=== PATIENT | female | born 1925 | race Caucasian/White ===

== ENCOUNTER 2016-10-15 12:05 | Emergency (ER) | payer MEDICARE, BC ==
--- NOTE | ~2016-10-15 | ER ---
PATIENT'S NAME: KATJA THOMAS [facility] AGE: 89 Y [address] ROOM: [place] [address] LOCATION: [facility] ADMIT DATE: 10/15/2016 ER/Outpatient Report DISCHARGE DATE: 10/15/2016 FAMILY PHYSICIAN: Robin Wolf MD ATTENDING PHYSICIAN: Karen Olivo TIME OF ARRIVAL: 1205 hours. TIME SEEN: 1206 hours. IDENTIFICATION: An 89-year-old female. CHIEF COMPLAINT: Vomiting. HISTORY OF PRESENT ILLNESS: The patient is an 89-year-old female from [place], [place] brought in by her . She has had nausea, vomiting all night long 12+ times. She denied diarrhea, but her said she had "been on the toilet" several times. She then admitted that maybe she did have some loose stools. She has had an occasional cough, she feels short of breath, she uses p.r.n. O2, and has a history of COPD. She has had no fever or chills. No ill contacts. ALLERGIES: NO KNOWN DRUG ALLERGIES. CURRENT MEDICATIONS: 1. Aricept 10 mg daily. 2. Levothyroxine 75 mcg daily. 3. Metoprolol 25 mg daily. MEDICAL PROBLEMS: COPD, hypertension, bronchiectasis, hypothyroidism, Alzheimer's dementia, dyslipidemia, Mycobacterium avium complex, takotsubo cardiomyopathy, and Lopez neuroma. PRIOR SURGERIES: L4-5 decompression, laminectomy, spinal fusion, appendectomy, cholecystectomy, breast biopsies, and total right knee arthroplasty. SOCIAL HISTORY: The patient is . She has been almost 72 years, will be 71 PATIENT'S NAME: KATJA THOMAS [facility] AGE: 89 Y [address] ROOM: [place] [address] LOCATION: [facility] ADMIT DATE: 10/15/2016 ER/Outpatient Report DISCHARGE DATE: 10/15/2016 FAMILY PHYSICIAN: Robin Wolf MD ATTENDING PHYSICIAN: Karen Olivo years, 72 in January. Tobacco use, quit in 1969. Alcohol use, denies. Drug use, denies. The patient is . She is retired. She has had multiple jobs throughout her life. REVIEW OF SYSTEMS: All systems reviewed and negative other than what is noted in the HPI. FAMILY HISTORY: No pertinent family history. PHYSICAL EXAMINATION: VITAL SIGNS: Height 5 feet, 2 inches and weight 53.6 kg. Blood pressure 152/72, pulse 104, respirations 19, temp 98, and sats 93%. GENERAL: A pleasant 89-year-old female in no acute distress. HEENT: Unremarkable. LUNGS: Clear to auscultation. HEART: Regular rate and rhythm. ABDOMEN: Soft, nondistended, nontender. SKIN: [place], warm, and dry. No lesions or rashes noted. NEURO: No focal deficit. EMERGENCY DEPARTMENT COURSE: The patient was given 300 mL fluid bolus then 150 mL/hr, but she was here from 12:05 p.m. until 16:27 p.m. and she received 900 mL of fluid. She received Zofran, she felt much better. LABORATORY DATA: EKG sinus tachycardia, nonspecific ST-T wave changes. White count slightly elevated at 12.3, 84% neutrophils, hemoglobin 16.4, hematocrit 51, and platelets 213. INR 1.0. CPK MB 0.7, troponin less than 0.040. Sodium 142, potassium 4.3, chloride 106, CO2 26, BUN 22, creatinine 1.3, blood sugar 125. Liver enzymes normal. Magnesium 2.6, amylase 49, lipase 99, CPK 70. UA specific gravity 1.025, 10-20 white cells, 2-5 red cells, 20-50 epithelial cells. Chest x-ray, no acute process, pending Radiology over-read. IMPRESSION: Gastroenteritis. PLAN: Clear liquids in small amounts at frequent intervals, advance diet as tolerated, follow up if fever, pain, or persistent nausea. Follow up with Dr. Wolf in 1-3 days. Follow up sooner if any problems or concerns. The patient and her understand and agree and all questions were answered. PATIENT'S NAME: KATJA THOMAS [facility] AGE: 89 Y [address] ROOM: [place], [place] [address] LOCATION: ED ADMIT DATE: 10/15/2016 ER/Outpatient Report DISCHARGE DATE: 10/15/2016 FAMILY PHYSICIAN: Robin Wolf MD ATTENDING PHYSICIAN: Karen Olivo MD Kali LORENZ /[id number] d: 10/17/16 0041 t: 10/17/16 1443, OUTPATIENT REPORT
[~2016-10-15 12:05] MED LIST: ARICEPT10 MG PO; ASPIR 8181 MG PO; ATROVENT HFA12.9 G1 INH; AZITHROMYCIN250 MG; DELTASONE10 MG PO; DELTASONE20 MG PO; INCRUSE ELLI62.5 MCG INH; LEVAQUIN500 MG PO; LEVOTHROID (SY50 MCG PO; LEVOTHROID(SYN75 MCG PO; MOBIC7.5 MG PO; SPIRIVA18 MCG INH; TOPROL XL25 MG PO; TYLENOL325 MG PO; ZITHROMAX500 MG PO
[2016-10-15 13:49] LABS: BASOPHIL % 0.3 %; EOSINOPHIL % 0.1 %; HEMOGLOBIN 16.4 g/dL (10.0-15.0); IMMATURE GRANULOCYTE # 0.1 K/uL (0.0-0.3); IMMATURE GRANULOCYTE % 0.4 %; LYMPHOCYTE # 0.8 K/uL (0.8-4.0); LYMPHOCYTE % 6.7 %; MCH 28.9 pg (27.0-34.0); MCHC 32.2 gm/dL (32.0-36.5); MCV 89.9 fl (83.0-98.0); MONOCYTE % 7.7 %; MPV 10.7 fl (9.4-12.4); NEUTROPHIL # (ANC) 10.4 K/uL (1.8-7.8); NEUTROPHIL % 84.8 %; NRBC % 0 /100WBC (0-0.00); WBC 12.3 K/uL (4.0-11.0)
[2016-10-15 13:51] LABS: PROTIME 10.4 SECONDS (9.6-11.1); PTT 22 SECONDS (25-32)
[2016-10-15 14:28] LABS: PLATELET COUNT 213 K/uL (150-450); RBC 5.67 M/uL (3.00-5.00)
[2016-10-15 15:10] LABS: ALBUMIN 3.7 gm/dL (3.5-5.0); ALK PHOS 84 IU/L (33-138); ALT 25 IU/L (12-78); ANION GAP 14.3 (10.0-19.0); AST 32 IU/L (10-40); BLOOD UREA NITROGEN 22 mg/dL (6-24); CALCIUM 8.9 mg/dL (8.5-10.5); CHLORIDE 106 mMol/L (96-110); CO2 26 mMol/L (22-32); CPK 70 IU/L (21-215); CREATININE 1.3 mg/dL (0.5-1.1); ESTIMATED GFR (MDRD EQUATION) 39; MAGNESIUM 2.6 mg/dL (1.3-2.6); POTASSIUM 4.3 mMol/L (3.7-5.1); SODIUM 142 mMol/L (135-145); TOTAL BILIRUBIN 0.4 mg/dL (0.0-1.5); TOTAL PROTEIN 7.6 g/dL (6.0-8.4)
[2016-10-15 15:57] LABS: BLOOD URINE 150 /UL (NEGATIVE); GLUCOSE URINE NEGATIVE (NEGATIVE); KETONE URINE 50 mg/dL (NEGATIVE); LEUKOCYTES URINE 100 /UL (NEGATIVE); NITRITE URINE NEGATIVE (NEGATIVE); PROTEIN URINE 30 mg/dL (NEGATIVE); SPEC GRAVITY URINE 1.025 (1.003-1.035); TURBIDITY URINE 2+ (CLEAR); UROBILINOGEN URINE 1 mg/dL (NORMAL)
[2016-10-15 16:16] LABS: COLOR URINE AMBER (YELLOW)
[2016-10-15 16:19] LABS: AMORPHOUS URINE 1+ (NEGATIVE); BACTERIA URINE RARE (NEGATIVE); EPITHELIAL URINE 20-50 #/HPF (NEGATIVE); HYALINE CAST URINE 20-50 #/LPF (NEGATIVE)
== END 2016-10-15 16:27 | disposition disaster alternative care site (69) ==
LOC: GMED 12:05
PROVIDERS: Family Medicine
DX: K52.9 Noninfective gastroenteritis and colitis, unspecified (principal); J44.9 Chronic obstructive pulmonary disease, unspecified; I10 Essential (primary) hypertension; E03.9 Hypothyroidism, unspecified; E78.5 Hyperlipidemia, unspecified; Z90.49 Acquired absence of other specified parts of digestive tract; Z98.890 Other specified postprocedural states
CPT/HCPCS: J2405; J7030

== ENCOUNTER 2016-10-16 07:57 | Observation (INO) | payer MEDICARE, BC ==
[~2016-10-16] VITALS: Ht 157.5 cm; Wt 56.7 kg
--- NOTE | ~2016-10-16 | HP ---
PATIENT'S NAME: KATJA THOMAS [facility] AGE: 89 Y [address] ROOM: [address] [address] LOCATION: [facility] [place] ADMIT DATE: 10/16/2016 History & Physical DISCHARGE DATE: FAMILY PHYSICIAN: Robin Wolf MD ATTENDING PHYSICIAN: CARLY PETTY DATE OF SERVICE: CHIEF COMPLAINT: IGNACIO and intractable nausea, vomiting, and diarrhea. HISTORY OF PRESENT ILLNESS: This is an 89-year-old female with history of COPD, lives at home with independently, presents with a 3-day history of intractable nausea, vomiting, and watery diarrhea. The patient states that she has not been able to keep anything down at least for the past 24 hours due to this as well. Denies any particular sick contacts, any new medications, antibiotic use, or recent hospitalization in the last 3 months. The patient right now tells me that her primary concern at this point is a lack of appetite and she has not been able to eat and drink. As far as the frequency of the diarrhea and vomiting, that has significantly reduced in volume and frequency since its onset 3 days ago. The patient was evaluated in the emergency room yesterday and was treated supportively and was discharged, but she returns today because she continued not to tolerate p.o. intake well. The patient states that she has had a bowel movement today which was more formed. Has not had vomiting since yesterday. The patient denies any abdominal pain, fever, chills, or any recent travel. PAST MEDICAL HISTORY: Hypertension, COPD, and dyslipidemia. SOCIAL HISTORY: Lives at home with . No history of drug use. Has not smoked over 30 years, but has had a long history of smoking prior to that. FAMILY HISTORY: Sister has osteoporosis, hypothyroidism. No history of heart disease or COPD in the family to report. PHYSICAL EXAMINATION: VITAL SIGNS: Blood pressure was 132/67, pulse 62, respiratory rate 28, temperature 97.4, and saturating 93% on room air. GENERAL: The patient is awake, alert, and oriented x3, in no apparent distress. HEENT: Has dry mucosal membranes. Conjunctival pallor noted. No scleral icterus. PATIENT'S NAME: KATJA THOMAS [facility] AGE: 89 Y [address] ROOM: [id number] [place] [id number] LOCATION: [facility] [place] ADMIT DATE: 10/16/2016 History & Physical DISCHARGE DATE: FAMILY PHYSICIAN: Robin Wolf MD ATTENDING PHYSICIAN: CARLY PETTY SKIN: Without rash or lesions. LUNGS: Coarse breath sounds, but clear to auscultation bilaterally. HEART: S1, S2, regular rate and rhythm. ABDOMEN: Soft, nontender, nondistended. Has positive bowel sounds. MUSCULOSKELETAL: No joint pain, effusion, redness noted. No muscular pain. NEURO: Grossly nonfocal. EXTREMITIES: Without edema. SIGNIFICANT LAB VALUES: creatinine of 1.3, BUN 27. Baseline creatinine is around 0.8. ASSESSMENT AND PLAN: 1. Acute kidney injury secondary to dehydration from nausea, vomiting, and diarrhea. Creatinine 1.3 today. We will continue with supportive care. Give IV normal saline and recheck renal function in the morning and anticipate this to improve with hydration. 2. Gastroenteritis, likely viral cause. Supportive care and start diet and slowly advance to a general diet and continue to monitor. 3. Intractable nausea, vomiting, and diarrhea secondary to likely viral gastroenteritis. 4. Chronic respiratory failure. The patient is on 2 L of oxygen as needed ambulatory. 5. Deep venous thrombosis prophylaxis. We will use subcutaneous heparin. MD SHORTY NARANJO/modl /[id number] D: [id number] T: [id number] HISTORY & PHYSICAL
--- NOTE | ~2016-10-16 | DS ---
PATIENT'S NAME: KATJA THOMAS [facility] AGE: 89 Y [address] ROOM: [place] [address] [place] [facility] [place]: 10/16/2016 Discharge Summary DISCHARGE DATE: 10/19/2016 FAMILY PHYSICIAN: Robin Wolf MD ATTENDING PHYSICIAN: Steph Gonzales PRINCIPAL DISCHARGE DIAGNOSIS: Gastroenteritis, likely viral. SECONDARY DIAGNOSES: 1. Chronic hypoxic respiratory failure and on oxygen at home. 2. Chronic obstructive pulmonary disease. 3. Acute kidney injury, resolved. 4. Essential hypertension, well controlled. 5. Indigestion. 6. Nausea and vomiting. 7. Hemorrhoids (single stool for occult blood positive). 8. Mild memory impairment. 9. Hypothyroidism. CONSULTATIONS: None. COMPLICATIONS: None. PROCEDURES: None. BRIEF HISTORY: Ms Thomas is a very sweet with admittedly poor short-term memory according to her and her . An 89-year-old female with COPD. She does live at home with her , whom she tells me is an EMT and he cares for her. She had come to the emergency room on Friday the with nausea, vomiting, diarrhea, improved after fluids and went home, but returned on the morning of the because of persistent diarrhea and vomiting She was noted to have creatinine up to 1.3. She was given IV fluids, monitored her renal function. IV hydration continued through yesterday. She continued to have multiple stools at that time and was not ready for discharge. She did have some indigestion but it resolved prior to treatment. She was able to ambulate in the halls yesterday. LABORATORY DATA: As of yesterday showed urine culture negative with only contaminant; renal panel showed sodium 142, potassium 3.6 (just under the lower limit of normal), chloride 112, CO2 21, glucose 74, calcium 7.4, BUN 15, creatinine down to 0.8, albumin 2.4, phosphorus 2.1. EGFR greater than 60. Magnesium 2.2. CBC showed white blood cell count 8, hemoglobin 12.3, PATIENT'S NAME: KATJA THOMAS [facility] AGE: 89 Y [address] ROOM: [place] [address] [place] [facility] [place]: 10/16/2016 Discharge Summary DISCHARGE DATE: 10/19/2016 FAMILY PHYSICIAN: Robin Wolf MD ATTENDING PHYSICIAN: Steph Gonzales platelets 201, absolute neutrophil count normal at 5.2 with a normal differential. Stool studies showed negative C diff and Giardia and Shiga toxin with normal fecal sherri. The patient's oxygen saturation this morning on room air was 94%. She has been on room air since yesterday and doing well with oxygen saturations all equal to or above 92. The patient was encouraged to be more active. She declined home physical therapy. After declined physical therapy, the and the patient are currently in agreement with the discharge plan. INSTRUCTIONS AT DISCHARGE: She could continue with BRAT diet, if needed. Bananas, rice, applesauce, saltines and tea; however, her stooling output is much improved. ACTIVITY: As tolerated. FOLLOWUP: Follow up with Dr. Wolf in less than 1 week. MEDICATIONS: 1. Donepezil 10 mg p.o. daily. 2. Anusol suppositories one [place] as needed at bedtime. 3. Levothyroxine 75 mcg p.o. daily. 4. Metoprolol 25 mg p.o. daily. 5. Dulera two puffs inhaled twice daily for COPD as needed. 6. Loperamide 4 mg p.o. four times a day p.r.n. loose stools. CONDITION AT DISCHARGE: Good. TIME SPENT: Greater than 30 minutes. SOL MELENDREZ MD LM/gurpreet /[id number] d: 10/19/16 1021 t: 10/21/16 1425, DISCHARGE SUMMARY
--- NOTE | ~2016-10-16 | ER ---
PATIENT'S NAME: KATJA THOMAS [facility] AGE: 89 Y [address] ROOM: [place] [address] [place] [facility] [place] ADMIT DATE: 10/16/2016 ER/Outpatient Report DISCHARGE DATE: FAMILY PHYSICIAN: Robin Wolf MD ATTENDING PHYSICIAN: CARLY GONZALES Time of Arrival: 0757 hours. Time of Evaluation: 0800 hours. IDENTIFICATION: An 89-year-old female. CHIEF COMPLAINT: Illness. HISTORY OF PRESENT ILLNESS: The patient is an 89-year-old female, who was here in the emergency room yesterday with nausea, vomiting, and diarrhea. She improved with 1 L of fluids and Zofran and was discharged home. Apparently, she had diarrhea throughout the night according to her . She has had nausea and dry heaves but no vomiting. No oral intake. The patient denies any abdominal pain. She just does not feel well. She is weak. Her said he had to call 911 because he did not believe he could get her to the car because she was just like a wet dishrag. ALLERGIES: NO KNOWN DRUG ALLERGIES. CURRENT MEDICATIONS: 1. Metoprolol ER 25 mg daily. 2. Levothyroxine 75 mcg daily. 3. Donepezil 10 mg daily. MEDICAL PROBLEMS: Hypertension, COPD, hypothyroidism. She does wear p.r.n. O2 at home. PRIOR SURGERIES: Spinal fusion, L4-5 decompression and laminectomy, right knee replacement, cholecystectomy, and appendectomy. SOCIAL HISTORY: The patient has been for 71 years, will be 72 in January. Lives in [place]. She is retired. She has had multiple jobs throughout the years. Tobacco use. She stopped in the . Alcohol use, denies. Drug use, denies. PATIENT'S NAME: KATJA THOMAS [facility] AGE: 89 Y [address] ROOM: [place] [address] LOCATION: [facility] [place] ADMIT DATE: 10/16/2016 ER/Outpatient Report DISCHARGE DATE: FAMILY PHYSICIAN: Robin Wolf MD ATTENDING PHYSICIAN: CARLY GONZALES REVIEW OF SYSTEMS: All systems reviewed and negative other than what is noted in the HPI. PHYSICAL EXAMINATION: VITAL SIGNS: Weight 54.4 kg, blood pressure 113/74, pulse 93, respiratory rate 24, 97.8 temp, sats 99% on 3 L per nasal cannula. GENERAL: A pleasant female, in no acute distress. HEENT: Head: Normocephalic, atraumatic. Ears: TMs translucent both ears. Nose: Mucosa pink, no lesions. Mouth: No lesions. Pharynx benign. NECK: Supple. No lymphadenopathy. LUNGS: Clear to auscultation. HEART: Regular rate and rhythm. ABDOMEN: Bowel sounds present. Soft, nondistended. No hepatosplenomegaly. No palpable masses. Nontender. SKIN: [place], warm, and dry. No lesions or rashes noted. NEURO: The patient is alert and oriented x4. Cranial nerves 2 through 12 grossly intact. Motor strength 5/5 throughout. Sensation is intact to light touch. No lower extremity edema. LABORATORY DATA AND X-RAYS: Chest x-ray, no acute process. Pending radiology over-read. White count elevated at 14.5 with 81% neutrophils. EKG, sinus rhythm at 92 beats per minute. No acute ST elevation or depression. Sodium 143, potassium 4.0, chloride 110, CO2 of 24, BUN 27, creatinine 1.3 which is stable from yesterday, blood sugar 133. Liver enzymes normal. Troponin I less than 0.040. CK-MB 1.3. ProBNP 364. TSH 1.90. D-dimer normal at 0.58. EMERGENCY DEPARTMENT COURSE: An IV was initiated at normal saline 75 mL/h, 4 mg of Zofran was given. The patient remained hemodynamically stable throughout her stay here in the emergency room. IMPRESSION: Nausea, vomiting, diarrhea. PLAN: The patient did obtain a stool here in the ER, which was sent right when she was being taken to the floor. So I do not have those results at this time. IV fluids. Zofran for nausea. The patient will be admitted by Dr. Gonzales. PATIENT'S NAME: KATJA THOMAS [facility] AGE: 89 Y [address] ROOM: [address] [place], [place] [address] LOCATION: [facility] [place] ADMIT DATE: 10/16/2016 ER/Outpatient Report DISCHARGE DATE: FAMILY PHYSICIAN: Robin Wolf MD ATTENDING PHYSICIAN: CARLY GONZALES MD CAR/modl /[id number] d: 10/17/16 0048 t: 10/17/16 1443, OUTPATIENT REPORT
[2016-10-16 08:34] LABS: BASOPHIL % 0.2 %; HEMOGLOBIN 15.5 g/dL (10.0-15.0); IMMATURE GRANULOCYTE # 0.1 K/uL (0.0-0.3); IMMATURE GRANULOCYTE % 0.4 %; LYMPHOCYTE # 1.2 K/uL (0.8-4.0); LYMPHOCYTE % 8.4 %; MCH 28.7 pg (27.0-34.0); MCHC 31.6 gm/dL (32.0-36.5); MCV 90.7 fl (83.0-98.0); MONOCYTE # 1.3 K/uL (0.0-1.0); MONOCYTE % 9.1 %; MPV 10.4 fl (9.4-12.4); NEUTROPHIL # (ANC) 11.9 K/uL (1.8-7.8); NEUTROPHIL % 81.9 %; NRBC % 0 /100WBC (0-0.00); RDW-CV 15.4 % (11.9-14.6); WBC 14.5 K/uL (4.0-11.0)
[2016-10-16 08:37] LABS: PLATELET COUNT 285 K/uL (150-450)
[2016-10-16 08:42] LABS: PROTIME 10.7 SECONDS (9.6-11.1); PTT 27 SECONDS (25-32)
[2016-10-16 08:58] LABS: ALBUMIN 3.6 gm/dL (3.5-5.0); ALK PHOS 81 IU/L (33-138); ALT 24 IU/L (12-78); AST 37 IU/L (10-40); BLOOD UREA NITROGEN 27 mg/dL (6-24); CALCIUM 8.6 mg/dL (8.5-10.5); CHLORIDE 110 mMol/L (96-110); CO2 24 mMol/L (22-32); CPK 101 IU/L (21-215); CREATININE 1.3 mg/dL (0.5-1.1); ESTIMATED GFR (MDRD EQUATION) 39; MAGNESIUM 2.6 mg/dL (1.3-2.6); SODIUM 143 mMol/L (135-145); TOTAL PROTEIN 6.9 g/dL (6.0-8.4)
[2016-10-16 09:02] LABS: BLOOD URINE 10 /UL (NEGATIVE); COLOR URINE YELLOW (YELLOW); GLUCOSE URINE NEGATIVE (NEGATIVE); KETONE URINE 15 mg/dL (NEGATIVE); LEUKOCYTES URINE NEGATIVE /UL (NEGATIVE); NITRITE URINE NEGATIVE (NEGATIVE); PROTEIN URINE 30 mg/dL (NEGATIVE); SPEC GRAVITY URINE 1.025 (1.003-1.035); TURBIDITY URINE CLEAR (CLEAR); UROBILINOGEN URINE NORMAL (NORMAL)
[2016-10-16 09:06] LABS: TOTAL BILIRUBIN 0.5 mg/dL (0.0-1.5)
[2016-10-16 09:25] LABS: BACTERIA URINE FEW (NEGATIVE); EPITHELIAL URINE RARE #/HPF (NEGATIVE); MUCUS URINE 4+ (NEGATIVE); RBC URINE RARE #/HPF (NEGATIVE); RENAL EPITH URINE 0-2 #/HPF (NEGATIVE)
[2016-10-17 06:35] LABS: ALBUMIN 2.9 gm/dL (3.5-5.0); ANION GAP 9.7 (10.0-19.0); CALCIUM 7.9 mg/dL (8.5-10.5); MAGNESIUM 2.5 mg/dL (1.3-2.6); PHOSPHORUS 2.6 mg/dL (2.5-4.9); POTASSIUM 3.7 mMol/L (3.7-5.1)
[2016-10-18 05:07] LABS: BASOPHIL % 0.3 %; EOSINOPHIL % 0.3 %; HEMOGLOBIN 12.3 g/dL (10.0-15.0); IMMATURE GRANULOCYTE % 0.4 %; LYMPHOCYTE # 1.9 K/uL (0.8-4.0); LYMPHOCYTE % 24.3 %; MCH 28.2 pg (27.0-34.0); MCHC 30.8 gm/dL (32.0-36.5); MCV 91.7 fl (83.0-98.0); MONOCYTE # 0.8 K/uL (0.0-1.0); MONOCYTE % 9.5 %; MPV 10.3 fl (9.4-12.4); NEUTROPHIL # (ANC) 5.2 K/uL (1.8-7.8); NEUTROPHIL % 65.2 %; NRBC % 0 /100WBC (0-0.00); RBC 4.36 M/uL (3.00-5.00)
[2016-10-18 05:09] LABS: PLATELET COUNT 201 K/uL (150-450)
[2016-10-18 05:17] LABS: ALBUMIN 2.4 gm/dL (3.5-5.0); ANION GAP 12.6 (10.0-19.0); BLOOD UREA NITROGEN 15 mg/dL (6-24); CHLORIDE 112 mMol/L (96-110); CO2 21 mMol/L (22-32); CREATININE 0.8 mg/dL (0.5-1.1); ESTIMATED GFR (MDRD EQUATION) > 60; MAGNESIUM 2.2 mg/dL (1.3-2.6); PHOSPHORUS 2.1 mg/dL (2.5-4.9); POTASSIUM 3.6 mMol/L (3.7-5.1); SODIUM 142 mMol/L (135-145)
[2016-10-18 05:20] LABS: CALCIUM 7.4 mg/dL (8.5-10.5)
[2016-10-19] MEDS ORDERED: DULERA 200 MCG/51 EA INH (09:36)
[2016-10-19] MEDS ORDERED: IMODIUM2 MG PO (09:37)
[2016-10-19] MEDS ORDERED: ANUSOL-HC25 MG R (09:45)
== END 2016-10-19 10:50 | disposition disaster alternative care site (69) ==
LOC: GMED 07:57 → GMSU 08:38
PROVIDERS: Family Medicine; Physician Assistant; ADMIT Internal Medicine
DX: K52.9 Noninfective gastroenteritis and colitis, unspecified (principal); J44.9 Chronic obstructive pulmonary disease, unspecified; I10 Essential (primary) hypertension; N17.9 Acute kidney failure, unspecified; J96.11 Chronic respiratory failure with hypoxia; E86.0 Dehydration; E03.9 Hypothyroidism, unspecified; E78.5 Hyperlipidemia, unspecified; R11.2 Nausea with vomiting, unspecified; R19.7 Diarrhea, unspecified; K64.9 Unspecified hemorrhoids; Z99.81 Dependence on supplemental oxygen; Z79.899 Other long term (current) drug therapy; Z79.51 Long term (current) use of inhaled steroids; Z87.891 Personal history of nicotine dependence
CPT/HCPCS: G8978; G8979; G8980; G8987; G8988; G8989; J1644; J2405; J7030

== ENCOUNTER → 2016-10-21 | Outpatient (CLI) | payer MEDICARE, BC ==
[~2016-10-21] MED LIST changes: +ANUSOL-HC25 MG R; +DELTASONE20 M1 PO; +DULERA 200 MCG/51 EA INH; +IMODIUM2 MG PO; +PROVENTIL OR V6.7 GM INH; +SPIRIVA HANDIHA1 KIT INH
== END | disposition disaster alternative care site (69) ==
LOC: LFPA 13:19
DX: R06.02 Shortness of breath (principal)

== ENCOUNTER 2016-11-28 11:08 | Inpatient (IN) | payer MEDICARE, BC ==
[~2016-11-28] VITALS: Ht 157.5 cm; Wt 53.9 kg
--- NOTE | ~2016-11-28 | ER ---
PATIENT'S NAME: KATJA THOMAS [facility] AGE: 89 Y [address] ROOM: [place] [address] LOCATION: [facility] ADMIT DATE: 11/28/2016 ER/Outpatient Report DISCHARGE DATE: FAMILY PHYSICIAN: Robin Wolf MD ATTENDING PHYSICIAN: MALGORZATA GROSSMAN Time of Arrival: 1108. Time Seen: 11:40. IDENTIFICATION: 89-year-old female. CHIEF COMPLAINT: Cough and wheezing. HISTORY OF PRESENT ILLNESS: The patient is an 89-year-old female, who was to be a direct admit to the hospital, but was brought to the emergency room in the event that there was not an immediately available bed. She was seen in the clinic at [facility], diagnosed with COPD exacerbation and pneumonia, and Dr. Grossman hospitalist was planning for admission. She has had difficulty breathing, which has gotten worse over the past 2-3 days, cough productive of yellow sputum, fatigue, weakness, and poor appetite. The patient was recently in the hospital October 16 to October 19 with gastroenteritis, chronic hypoxic respiratory failure, COPD, acute kidney injury, essential hypertension, indigestion. PAST MEDICAL HISTORY: ALLERGIES: NO KNOWN DRUG ALLERGIES. CURRENT MEDICATIONS: Please refer to her med recon. MEDICAL PROBLEMS: COPD, hypertension, bronchiectasis, hypothyroidism, dementia, dyslipidemia, takotsubo cardiomyopathy, mycobacterium avium complex, and Lopez neuroma. PRIOR SURGERIES: L4-5 decompression, laminectomy, spinal fusion, appendectomy, cholecystectomy, breast biopsies, and total right knee arthroplasty. SOCIAL HISTORY: The patient is . She has been almost 70 years. Tobacco use, PATIENT'S NAME: KATJA THOMAS [facility] AGE: 89 Y [address] ROOM: [place] [address] LOCATION: [facility] ADMIT DATE: 11/28/2016 ER/Outpatient Report DISCHARGE DATE: FAMILY PHYSICIAN: Robin Wolf MD ATTENDING PHYSICIAN: MALGORZATA GROSSMAN quit in 1969. Alcohol use, denies. Drug use, denies. She is retired. REVIEW OF SYSTEMS: All systems reviewed and negative other than what is noted the HPI. FAMILY HISTORY: No pertinent family history. PHYSICAL EXAMINATION: VITAL SIGNS: Weight 53.5 kg, blood pressure 155/71, pulse 110, respirations 24, temperature 100.9, and saturations 92%. GENERAL: An 89-year-old female in mild respiratory distress with a productive cough. HEENT: Head: Normocephalic, atraumatic. Ears: TMs translucent to both ears. Eyes: Pupils equal and reactive to light and accommodation. Extraocular movements intact. Nose: Mucosa pink. No lesions. Mouth: No lesions. Pharynx benign. LUNGS: Diminished breath sounds with coarse sounds. HEART: Sinus tachycardia. No murmur, rub, or gallop. ABDOMEN: Soft, nondistended, nontender. SKIN: Pale, warm, and dry. NEUROLOGIC: The patient is alert, and at this time oriented x4. Cranial nerves 2 through 12 grossly intact. Motor strength 5/5 throughout. Sensation is intact to light touch. EXTREMITIES: Trace of edema. No calf tenderness. LABORATORY DATA: UA: Specific gravity of 1.025, pH of 5.0, rare white cells, negative red cells. Urine culture pending. Procalcitonin 0.14. Legionella antigen negative. ProBNP elevated at 643. Influenza A and B negative. D-dimer 0.46. Sputum Gram stain, many gram-negative rods, moderate gram-positive cocci in change, few gram-positive cocci in clusters, many white blood cells, culture pending. Blood cultures x2 pending. Lactate 2.4. Labs from the clinic actually went to the floor with her chart prior to this dictation. She did have a CBC and BMP, please refer to those from [facility]. Chest x-ray also was reportedly done at [facility] showing pneumonia. IMPRESSION: 1. Pneumonia. 2. Chronic obstructive pulmonary disease exacerbation. 3. Alzheimer dementia. 4. Generalized weakness. PLAN: Solu-Medrol 125 mg IV x1. Levaquin 750 mg IV x1. Xopenex and Atrovent now PATIENT'S NAME: KATJA THOMAS [facility] AGE: 89 Y [address] ROOM: [id number] [place], [place] [address] LOCATION: [facility] ADMIT DATE: 11/28/2016 ER/Outpatient Report DISCHARGE DATE: FAMILY PHYSICIAN: Robin Wolf MD ATTENDING PHYSICIAN: MALGORZATA GROSSMAN and q.6 hours while awake. Xopenex q.[address] Grossman was made aware of her arrival to the emergency room. We will plan for admission and did evaluate her in the emergency room and the patient remained in stable condition. She was given an Atrovent and Xopenex breathing treatment here in the emergency room. ADOLPH BILLINGSLEY MD CAR/modl /[id number] d: 11/29/16 0016 t: 11/29/16 0800, OUTPATIENT REPORT
--- NOTE | ~2016-11-28 | HP ---
PATIENT'S NAME: KATJA THOMAS [facility] AGE: 89 Y [address] ROOM: [place] [address] LOCATION: [facility] ADMIT DATE: 11/28/2016 History & Physical DISCHARGE DATE: FAMILY PHYSICIAN: Robin Wolf MD ATTENDING PHYSICIAN: MALGORZATA GROSSMAN DATE OF SERVICE: CHIEF COMPLAINT: Worsening shortness of breath on exertion and decreased oral intake in the last few days. HISTORY OF PRESENT ILLNESS: This is an 89-year-old female, who is a poor historian. The story is that she has COPD and uses 2 L of oxygen at home at all times, and chronically, she has shortness of breath on exertion, and occasionally has a cough, sometimes it is dry, sometimes it is with phlegm with yellow sputum, it is on and off and alternates. The story is that for the last few days, she has been having more worsening of her shortness of breath on exertion and probably more frequent cough, but she can not give me a really straight forward story. She denies chest pain, denies any fever, but she does have some chills in the last few days. Recently, she has been having poor oral intake, and she says that probably she is making a little bit less urine than usual. She denies chest pain or palpitation or diaphoresis or dysuria or urinary frequency or urgency. The patient was seen in the clinic today from the outside facility, and due to the concern for pneumonia and COPD exacerbation, the patient was referred here for admission and further care. REVIEW OF SYSTEMS: As mentioned in the history of present illness. All other systems reviewed and negative except those mentioned in the history of present illness. PAST MEDICAL HISTORY: 1. COPD, on 2 L oxygen nasal cannula 10/03. 2. Hyperlipidemia. 3. Hypothyroidism. 4. Hypertension. ALLERGIES: NO KNOWN DRUG ALLERGIES. HOME MEDICATIONS: Currently have been reconciled. SOCIAL HISTORY: PATIENT'S NAME: KATJA THOMAS [facility] AGE: 89 Y [address] ROOM: [place] [address] LOCATION: [facility] ADMIT DATE: 11/28/2016 History & Physical DISCHARGE DATE: FAMILY PHYSICIAN: Robin Wolf MD ATTENDING PHYSICIAN: MALGORZATA GROSSMAN The patient was a former cigarette smoker. She quit about many years ago, roughly 20 years ago. She was a former smoker about one pack per day for many years. She denies any alcohol or any illegal drug use. PAST SURGICAL HISTORY: 1. Status post right knee surgery in the past. 2. Status post lower back surgery in the past with L4-L5 laminectomy and decompression. 3. Status post appendectomy. 4. Status post cholecystectomy. FAMILY HISTORY: Father from old age that she could not remember from what cause. Mother had hypertension and also from an advanced age that she could not remember from what cause. PHYSICAL EXAMINATION: VITAL SIGNS: At the time of my dictation, temperature 98.2, heart rate 88, respirations 20, blood pressure 106/58, saturation 94% on 2 L nasal cannula. Pain 0/10. GENERAL APPEARANCE: Alert and oriented x3, in no acute distress. HEENT: Pupils are equally round and reactive to light. Extraocular muscles intact. Anicteric sclerae. Nasal turbinates are normal bilaterally. Moist oral mucosa. NECK: No JVD. No cervical lymphadenopathy. CARDIOVASCULAR: Regular rate and rhythm. No murmur. No rubs, no gallops. RESPIRATORY: Decreased breath sounds diffusely with occasional wheezing diffusely with left lower lung crackles. ABDOMEN: Soft, nontender, nondistended, normal bowel sounds, no hepatosplenomegaly, and bowel sounds are present. EXTREMITIES: No edema in upper or lower extremities. NEUROLOGICAL: Grossly nonfocal. SKIN: No ulcer, no rash, no cyanosis. MUSCULOSKELETAL: No joint pain. No muscle pain. LABORATORY DATA: Lactic acid 2.4. ProBNP 643. Creatinine 1.2. GFR 42. Urinalysis: 25 leukocyte, negative bacteria, negative nitrite, rare white blood cell. Influenza screen negative. Procalcitonin 0.14. D-dimer 0.46. CBC from outside facility today showed white blood cells 17.7, hemoglobin 15, hematocrit 47.2, platelets 266. Glucose 209, calcium 9.2, BUN 11, creatinine 1.0, GFR 52, sodium 140, potassium 4.3, chloride 99, CO2 of 29, anion gap 12. IMAGING DATA: Chest x-ray performed from the outside facility on the day of admission, PATIENT'S NAME: KATJA THOMAS [facility] AGE: 89 Y [address] ROOM: [address] [address] LOCATION: [facility] ADMIT DATE: 11/28/2016 History & Physical DISCHARGE DATE: FAMILY PHYSICIAN: Robin Wolf MD ATTENDING PHYSICIAN: MALGORZATA GROSSMAN imaging is on the PAC, and the report is read as infiltrate on the left lower lobe. ASSESSMENT AND PLAN: 1. Acute on chronic hypoxemic respiratory failure secondary to chronic obstructive pulmonary disease exacerbation from pneumonia: At one point in the emergency room, the patient's oxygen saturation did drop down to the mid 80s and required up to 4 L of nasal cannula. Therefore, this is acute on chronic hypoxemic respiratory failure since the patient usually uses 2 L at home 10/03. Given that the patient was recently here in the hospital back in October 2016 for acute kidney injury from nausea and vomiting, from decreased oral intake, the patient was exposed to the healthcare facility. For this reason, I am going to cover her with healthcare-acquired pneumonia coverage as well as community-acquired coverage with IV Levaquin, IV meropenem, and IV linezolid. I will treat her with a chronic obstructive pulmonary disease exacerbation with IV Solu-Medrol 125 mg, then 60 b.i.d. as well as nebulization with Xopenex plus Atrovent while awake and q.6 hour, and Xopenex q.2 hours p.r.n. Getting IV fluids normal saline at maintenance rate at 60 mL/h and titrate if needed. Currently, the patient is hemodynamically stable. Also, start her on Florastor 250 mg p.o. b.i.d. Check influenza nasal antigen swab. Do sputum culture Gram stain. Check urine for antigen and Legionella. Further plan depends on clinical course. I will repeat a chest x-ray tomorrow morning and to be read by our radiologist. Repeat blood work including lactic acid and procalcitonin in the morning. I have already filled out the sepsis order set and pneumonia order set, and they are in the chart. 2. Regarding her hypertension: Hold the blood pressure medication in the setting of sepsis and pneumonia. 3. Regarding her hypothyroidism: I will be checking a TSH and adjust the dose of the levothyroxine if necessary. TSH will be checked in the morning with a morning lab. For now, continue the home dose of 75 mcg of levothyroxine and titrate if needed depending on the TSH in the morning. 4. Deep venous thrombosis prophylaxis: Heparin subcutaneous 3 times a day. 5. Regarding her acute kidney injury: Last time when she was here in back in October 2016, her GFR was more than 60, creatinine on discharge was 0.8. Currently, it is 1.2 and GFR is 42. This is acute kidney injury. Hydration with normal saline as already mentioned before, can increase the rate if necessary. Check a renal panel in the morning again. Monitor urine output. Time spent on the day of admission 35 minutes including chart review, interviewing the patient, addressing all the questions and concerns the patient had, and going over the plan of care with the patient and nurses. I have also addressed all their questions to their satisfaction. PATIENT'S NAME: KATJA THOMAS [facility] AGE: 89 Y [address] ROOM: [place] [address] LOCATION: [facility] ADMIT DATE: 11/28/2016 History & Physical DISCHARGE DATE: FAMILY PHYSICIAN: Robin Wolf MD ATTENDING PHYSICIAN: MALGORZATA GROSSMAN In addition, I will be checking EKG given that the patient has tachycardia on the monitor, EKG to confirm the sinus rhythm or any arrhythmia. Further plan depends on clinical course. MALGORZATA GROSSMAN MD CC/modl /[id number] D: [id number] T: [id number] HISTORY & PHYSICAL
--- NOTE | ~2016-11-28 | DS ---
PATIENT'S NAME: KATJA THOMAS [facility] AGE: 89 Y [address] ROOM: [address] [place] [address] LOCATION: [facility] ADMIT DATE: 11/28/2016 Discharge Summary DISCHARGE DATE: 12/02/2016 FAMILY PHYSICIAN: Robin Wolf MD ATTENDING PHYSICIAN: Farzad Anne PRINCIPAL DIAGNOSES: 1. Acute on chronic hypoxic respiratory failure. 2. Gram-negative pneumonia with Haemophilus influenzae. 3. Chronic obstructive pulmonary disease exacerbation. 4. Hypertension. 5. Dementia. 6. Hypothyroidism. HOSPITAL COURSE: An 89-year-old very sweet lady with a history of COPD on 2 L of oxygen at home was admitted through the emergency department with increasing shortness of breath on exertion associated with some cough most of the time dry for past few days. Initial evaluation including a chest x-ray did show a right-sided pneumonia as well as she was found to be in COPD exacerbation. She was admitted to the hospital and she was started on some IV hydration and COPD treatment including prednisone, DuoNebs as well as Dulera. Sputum cultures were obtained and she was started initially on broad-spectrum antibiotics, but the sputum cultures came back positive for H influenzae and then she was started on Levaquin. On the day of the discharge, her vitals were stable. Her lab work had been unremarkable. She has improved well during the course of the hospitalization. We will send her home on prednisone 60 mg for 2 more days as well as Levaquin for 2 more days. Of note, she was taking Dulera at home as well as Atrovent. I am going to tweak those to optimize the medication with albuterol, Spiriva, and Dulera b.i.d. DISCHARGE MEDICATIONS: 1. Aricept 10 mg p.o. every day. 2. Hydrocortisone 25 mg rectal every night at bedtime. 3. Levothyroxine mcg p.o. every day. 4. Dulera 2 puffs inhalation twice daily. 5. Metoprolol succinate 25 mg p.o. every day. 6. Loperamide 2 mg p.o. 4 times daily p.r.n. 7. Spiriva 18 mcg per capsule one capsule inhalation daily. 8. Albuterol inhalers q.4 hours p.r.n. inhalation for shortness of breath. 9. Prednisone 60 mg p.o. daily for 2 more days 2 tablets. 10. Levaquin 500 mg p.o. daily for 2 more days. FOLLOWUP: She was advised to follow up with her primary care physician in 1 PATIENT'S NAME: KATJA THOMAS [facility] AGE: 89 Y [address] ROOM: [place] [address] LOCATION: [facility] ADMIT DATE: 11/28/2016 Discharge Summary DISCHARGE DATE: 12/02/2016 FAMILY PHYSICIAN: Robin Wolf MD ATTENDING PHYSICIAN: Farzad Anne. HEMODYNAMICS ON DISCHARGE: Stable. ACTIVITY: As tolerated. DIET: Low-sodium diet. PARADISE POLK MD JACQUIE/modl /[id number] d: 12/03/16 0421 t: 12/06/16 1505, DISCHARGE SUMMARY
[~2016-11-28 11:08] MED LIST changes: -DELTASONE20 M1 PO; -PROVENTIL OR V6.7 GM INH; -SPIRIVA HANDIHA1 KIT INH
[2016-11-28 12:49] LABS: BLOOD URINE 10 /UL (NEGATIVE); COLOR URINE AMBER (YELLOW); GLUCOSE URINE NEGATIVE (NEGATIVE); KETONE URINE 50 mg/dL (NEGATIVE); LEUKOCYTES URINE 25 /UL (NEGATIVE); NITRITE URINE NEGATIVE (NEGATIVE); PROTEIN URINE 30 mg/dL (NEGATIVE); SPEC GRAVITY URINE 1.025 (1.003-1.035); TURBIDITY URINE CLEAR (CLEAR); UROBILINOGEN URINE 4 mg/dL (NORMAL)
[2016-11-28 13:07] LABS: BACTERIA URINE NEGATIVE (NEGATIVE); EPITHELIAL URINE NEGATIVE #/HPF (NEGATIVE); RBC URINE NEGATIVE #/HPF (NEGATIVE); WBC URINE RARE #/HPF (NEGATIVE)
[2016-11-28 13:08] LABS: AMORPHOUS URINE 1+ (NEGATIVE); MUCUS URINE 1+ (NEGATIVE)
[2016-11-28] MEDS ORDERED: ATROVENT HFA12.9 G1 INH (16:27)
[2016-11-28 16:39] LABS: CREATININE 1.2 mg/dL (0.5-1.1)
--- NOTE | 2016-11-28 17:21 | NUR ---
Patient is 89 yo female admitted this afternoon for increasing shortness of breath over the past couple of days. patient has hx of pneumoia. wears oxygen at night at 2l/nc. patient does have dementia. 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 IV is infusing in left inner forearm without erythema or edema noted at site. Education is given as documented, however with patient's dementia, she seems agreeable to everything and states I dont' have that, when talking about s/s to report to nursing. pneumatics are on bilat calves. fall and allergy bracelets are on. call light is within reach. patient is eating some supper. Report is given to LILIANA Galo.
--- NOTE | 2016-11-29 03:51 | NUR ---
Significant Event: Patient A/O. Forgetful at times, and makes confused comments occasionaly. Has history of alzheimers. No c/o pain. VSS. Ladd placed per MD order- minimal output. Patient feels as though she has to void, bladder scan showed 0ml. No BM. Up to commode with 1 assist. Impulsive at times, setting off bed alarm. Uses call light at times. No family or visitors this shift. Remains on 1L NC overnight. Per patient-wears 1L at night at home. Only had a few crackers for a snack. Follow up: Continue to monitor.
[2016-11-29 08:27] LABS: ANION GAP 12.4 (10.0-19.0); BASOPHIL % 0.1 %; CALCIUM 8.3 mg/dL (8.5-10.5); CREATININE 1.1 mg/dL (0.5-1.1); HEMATOCRIT 36.7 % (30.0-46.0); IMMATURE GRANULOCYTE # 0.3 K/uL (0.0-0.3); IMMATURE GRANULOCYTE % 1.4 %; LYMPHOCYTE # 1.1 K/uL (0.8-4.0); LYMPHOCYTE % 5.7 %; MCH 29.1 pg (27.0-34.0); MCHC 32.7 gm/dL (32.0-36.5); MCV 88.9 fl (83.0-98.0); MONOCYTE # 0.8 K/uL (0.0-1.0); MONOCYTE % 4.4 %; MPV 10.8 fl (9.4-12.4); NEUTROPHIL # (ANC) 16.8 K/uL (1.8-7.8); NEUTROPHIL % 88.4 %; NRBC % 0 /100WBC (0-0.00); POTASSIUM 3.4 mMol/L (3.7-5.1); RBC 4.13 M/uL (3.00-5.00); RDW-CV 14.8 % (11.9-14.6)
[2016-11-29 08:28] LABS: PLATELET COUNT 252 K/uL (150-450)
--- NOTE | 2016-11-29 12:38 | NUR ---
Introduced self and CM role to patient and her this morning. Patient was very pleasant and started that she is feeling okay. Pt and her live in [place], [place] and plan is to return there when medically cleared to do so. Used to this process, as she gets pneumonia often. No other needs or concerns at this time. Wrote CM name on markerboard and told them to contact us if any concerns arise. 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
--- NOTE | 2016-11-29 16:15 | NUR ---
Pt alert, oriented but forgetful. 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 Pt has bed alarm on and is quick when gets out of bed. She is on room air and uses 1-2 L O2 at noc as at home. Pt had bean inserted last noc, low output then. 500 ml bolus in noc. Output remains low. PA informed and bean remains in. She was complaining in noc as needing to void a lot but no longer complaining about it. Pt up with one assist. Denies SOB, has occasional cough. States yellow phlegm but not observed. New order to obtain sputum specimen. COntainer at bedside. Pt LS are clear and Diminished. IV NS infuses at 60 ml per hr.
[2016-11-30 04:25] LABS: BASOPHIL % 0.1 %; HEMATOCRIT 34.5 % (30.0-46.0); HEMOGLOBIN 11.2 g/dL (10.0-15.0); IMMATURE GRANULOCYTE # 0.4 K/uL (0.0-0.3); IMMATURE GRANULOCYTE % 1.9 %; LYMPHOCYTE % 4.2 %; MCH 28.5 pg (27.0-34.0); MCHC 32.5 gm/dL (32.0-36.5); MCV 87.8 fl (83.0-98.0); MONOCYTE # 0.5 K/uL (0.0-1.0); MONOCYTE % 2.3 %; MPV 10.5 fl (9.4-12.4); NEUTROPHIL # (ANC) 21.4 K/uL (1.8-7.8); NEUTROPHIL % 91.5 %; NRBC % 0 /100WBC (0-0.00); PLATELET COUNT 262 K/uL (150-450); RBC 3.93 M/uL (3.00-5.00); RDW-CV 14.7 % (11.9-14.6)
[2016-11-30 04:27] LABS: WBC 23.3 K/uL (4.0-11.0)
--- NOTE | 2016-11-30 04:31 | NUR ---
Significant Event: Patient is alert and oriented to self and time. Disoriented to place at times. Forgetful. Impulsive. Bed alarm on at all times. Up with stand by assist and gait belt. VSS on 1L of O2. On room air during the day. HRs in the 50s-90s. SBPs in the 100s-130s. Afebrile. Follows commands. Equal strength throughout. Tylenol given at 0114. Left forearm IV with NS running at 60 ml/hr. On oral antibiotics. Needs sputum culture. Follow up:
[2016-11-30 04:43] LABS: ALBUMIN 2.4 gm/dL (3.5-5.0); CALCIUM 7.9 mg/dL (8.5-10.5); CREATININE 0.9 mg/dL (0.5-1.1); MAGNESIUM 2.2 mg/dL (1.8-2.6)
[2016-11-30 04:44] LABS: ANION GAP 11.6 (10.0-19.0); PHOSPHORUS 1.9 mg/dL (2.5-4.9); POTASSIUM 4.6 mMol/L (3.7-5.1)
--- NOTE | 2016-11-30 14:42 | NUR ---
Significant Event: A/OX3, forgetful, repetitive with stories, lungs diminished BLL, SOB with activity, Room Air, 1 assist/gait belt, up in chair, showered, ambulated in [place] w/ O2 due to SOB, saline lock L)FA, voids per toilet, @ bedside today, good appetite, bed alarm, pleasant/cooperative. Follow up: Home O2 at night 2l/nc
--- NOTE | 2016-12-01 03:23 | NUR ---
Pt arrives to PCU at 1830. VSS, on RA. No complainst of pain. Up SBA. IV saline locked. Accompanied by NTU aid. A/Ox3, forgetful.
--- NOTE | 2016-12-01 04:53 | NUR ---
Significant events: Pt transferred from NTU at shift change. A/Ox3, forgetful. VSS. On RA when awake, 2L/NC per home dose. PO antibiotics and steroids. Up SBA. No complaints of pain. Slept msot of shift.
[2016-12-01 06:22] LABS: BASOPHIL % 0.1 %; HEMATOCRIT 35.1 % (30.0-46.0); HEMOGLOBIN 11.5 g/dL (10.0-15.0); IMMATURE GRANULOCYTE # 0.1 K/uL (0.0-0.3); IMMATURE GRANULOCYTE % 0.9 %; LYMPHOCYTE % 12.8 %; MCH 28.5 pg (27.0-34.0); MCHC 32.8 gm/dL (32.0-36.5); MCV 87.1 fl (83.0-98.0); MONOCYTE # 1.1 K/uL (0.0-1.0); MONOCYTE % 7.1 %; MPV 10.2 fl (9.4-12.4); NEUTROPHIL # (ANC) 12.6 K/uL (1.8-7.8); NEUTROPHIL % 79.1 %; NRBC % 0 /100WBC (0-0.00); PLATELET COUNT 262 K/uL (150-450); RBC 4.03 M/uL (3.00-5.00); RDW-CV 14.6 % (11.9-14.6)
[2016-12-01 06:38] LABS: CALCIUM 7.9 mg/dL (8.5-10.5); CREATININE 0.9 mg/dL (0.5-1.1)
--- NOTE | 2016-12-01 16:51 | NUR ---
A/Ox3. Forgetful at times. SB assist. VSS on RA, wears 2L at night. SOB with activity. Lung sounds clear and diminished. Voiding well per toilet, 1 small BM. No complaints of pain throughout the day. IV to R hand SL and flushes well.
--- NOTE | 2016-12-02 05:01 | NUR ---
Significant Event:VSS.2L OXYGEN AT NIGHT. UP TO BATHROOM. PT DENIES PAIN. SLEPT MOST OF THE SHIFT. EAGER TO RETURN HOME Follow up:DISMISSAL 12/02?
[2016-12-02] MEDS ORDERED: DELTASONE20 M1 PO (10:11)
[2016-12-02] MEDS ORDERED: TYLENOL325 MG PO (10:12)
[2016-12-02] MEDS ORDERED: SPIRIVA HANDIHA1 KIT INH (10:14)
[2016-12-02] MEDS ORDERED: PROVENTIL OR V6.7 GM INH (10:15)
[2016-12-02] MEDS ORDERED: LEVAQUIN500 MG PO (10:16)
--- NOTE | 2016-12-02 12:27 | NUR ---
DISMISSED PER WHEEL CHAIR. DISMISSAL INSTRUCTIONS, INSTRUCTIONS ON NEW MEDICATIONS AND BELONGINGS SENT ALONG WITH AND FAMILY. BOTH PT AND STATE UNDERSTANDING OF INSTRUCTIONS. THEY ALSO STATE UNDERSTANDING OF NEEDING TO TAKE THE PRESCRIPTIONS TO THEIR PHARMACY TO BE FILLED. HOME MEDICATION BOTTLES ALSO SENT ALONG WITH PT AND .
== END 2016-12-02 12:25 | disposition disaster alternative care site (69) | DRG 177 ==
LOC: GMED 11:08 → GNTU 14:44 → GPCU 11-30 19:12
PROVIDERS: Family Medicine; Internal Medicine; Nurse Practitioner Family; ADMIT Internal Medicine
DX: J15.6 Pneumonia due to other Gram-negative bacteria (principal); J96.21 Acute and chronic respiratory failure with hypoxia; N17.9 Acute kidney failure, unspecified; J44.1 Chronic obstructive pulmonary disease with (acute) exacerbation; G30.9 Alzheimer's disease, unspecified; I10 Essential (primary) hypertension; Z90.49 Acquired absence of other specified parts of digestive tract; Z98.890 Other specified postprocedural states; Z87.891 Personal history of nicotine dependence
CPT/HCPCS: J1644; J1956; J2020; J2185; J2930; J7030; J7512; J7612